=== PATIENT | female | born 1995 | race Caucasian/White ===

== ENCOUNTER → 2023-12-04 | Emergency (ER) | payer BC ==
[~2023-12-04] MED LIST: MORPHINE 2 MG/ML SYR ONE; ONDANSETRON 4 MG/2 ML VIAL ONE
[2023-12-04 18:38] LABS: Absolute Lymphocytes (CBC) 1.8 K/uL (0.7-4.9); Albumin 3.9 g/dL (3.4-5.0); Bilirubin Total 0.3 mg/dL (0.2-1.0); Hematocrit 42.5 % (36.0-45.0); Lymphocytes % 21.8 % (15.3-44.8); MCV 90.5 fL (80-100); MPV 7.8 fL (7.6-11.3); Platelets 338 thou/uL (152-406); Potassium 3.8 mEq/L (3.5-5.1); Protein, Total 7.8 g/dL (6.4-8.2); RBC Red Blood Cell Count 4.69 M/uL (3.86-4.86)
[2023-12-04 19:20] LABS: Urine Bacteria <20 /HPF (<20); Urine Bilirubin NEGATIVE (Negative); Urine Blood Negative (Negative); Urine Clarity Clear (Clear); Urine Color Yellow (Yellow); Urine Glucose NEGATIVE (Negative); Urine Mucus 1+ /HPF (None Seen); Urine Protein TRACE (Negative); Urine RBC <5 /HPF (None Seen); Urine Urobilinogen 1+ (Normal); Urine pH 5.5 (5.0-7.0)
--- NOTE | 2023-12-04 20:05 | RAD REPORT ---
EXAM DESCRIPTION: CT - Abdomen Pelvis W Contrast - 12/04/2023 7:43 pm CLINICAL HISTORY: Abdominal pain COMPARISON: None TECHNIQUE: Computed axial tomography of the abdomen and pelvis was obtained. 100 cc Isovue-300 is ad ministered intravenously. All CT scans are performed using dose optimization technique as appropriate and may include automated exposure control or mA/KV adjustment according to patient size. FINDINGS: The liver, spleen, pancreas, adrenals and kidneys appear unremarkable. There is no evidence of diverticulitis Normal appendix. 1.8 centimeter right ovarian follicle IMPRESSION: No acute abnormality is displayed
--- NOTE | 2023-12-04 20:15 | ER ---
Nurse's Notes [facility] Name: Liliya Cool Age: 28 yrs Sex: Female : 1995 Arrival Date: 12/04/2023 Time: 17:18 Bed 5 Private MD: Diagnosis: Abdominal pain, Generalized Presentation: 12/04 17:56 Chief complaint: N/D and diffuse abdominal pain x 3 days, black stool today, has been hb taking Pepto. Coronavirus screen: At this time, the client does not indicate any symptoms associated with coronavirus-19. Ebola Screen: No symptoms or risks identified at this time. Initial Sepsis Screen: Does the patient meet any 2 criteria? No. Patient's initial sepsis screen is negative. Does the patient have a suspected source of infection? No. Patient's initial sepsis screen is negative. Risk Assessment: Do you want to hurt yourself or someone else? Patient reports no desire to harm self or others. Onset of symptoms was December 02, 2023. 17:56 Method Of Arrival: Ambulatory hb 17:56 Acuity: CESAR 3 hb Historical: - Allergies: 17:59 No Known Allergies; hb - Home Meds: 17:59 None [Active]; hb - PSHx: 17:59 Knee - Left; hb - Immunization history:: Adult Immunizations up to date. - Social history:: Smoking status: Reported history of juuling and/or vaping. Screenin:[address] [facility] ED Fall Risk Assessment (Adult) History of falling in the last 3 months, mb9 including since admission No falls in past 3 months (0 pts) Confusion or Disorientation No (0 pts) Intoxicated or Sedated No (0 pts) Impaired Gait No (0 pts) Mobility Assist Device Used No (0 pt) Altered Elimination No (0 pt) Score/Fall Risk Level 0 - 2 = Low Risk Oriented to surroundings, Maintained a safe environment, Educated pt \T\ family on fall prevention, incl call for assistance when getting out of bed. Abuse screen: Denies threats or abuse. Nutritional screening: No deficits noted. Tuberculosis screening: Assessment: 18:08 General: Appears in no apparent distress. Behavior is calm, cooperative. Pain: mb9 Complains of pain in abdomen Quality of pain is described as throbbing, Pain began 2-3 days ago. Is intermittent. Neuro: Fagan Agitation-Sedation Scale (RASS): 0 - Alert and Calm Level of Consciousness is awake, alert, obeys commands, Oriented to person, place, time, situation, Appropriate for age. Cardiovascular: Patient's skin is warm and dry. Respiratory: Airway is patent Respiratory effort is even, unlabored, Respiratory pattern is regular, symmetrical. GI: Abdomen is round non-distended, Bowel sounds present X 4 quads. Abd is soft and non tender X 4 quads. Reports nausea. : No signs and/or symptoms were reported regarding the genitourinary system. EENT: No signs and/or symptoms were reported regarding the EENT system. Derm: Skin is pink, warm \T\ dry. Musculoskeletal: Range of motion: intact in all extremities. 19:53 Reassessment: Patient appears in no apparent distress at this time. No changes from tm6 previously documented assessment. Patient and/or family updated on plan of care and expected duration. Pain level reassessed. Patient is alert, oriented x 3, equal unlabored respirations, skin warm/dry/pink. Vital Signs: 17:56 BP 147 / 95; Pulse 84; Resp 16; Temp 98.9(O); Pulse Ox 98% on R/A; Weight 81.65 kg; hb Height 5 ft. 4 in. ; Pain 5/10; 19:00 BP 102 / 66; Pulse 78; Resp 16; Pulse Ox 100% on R/A; mb9 19:51 BP 123 / 71; Pulse 83; Pulse Ox 98% on R/A; Pain 3/10; tm6 17:56 Body Mass Index 30.90 (81.65 kg, 162.56 cm) hb 17:56 Pain Scale: Adult hb 19:51 Pain Scale: Adult tm6 ED Course: 17:24 Patient arrived in ED. mg5 17:24 Sofy Adan PA-C is PHCP. sb4 17:24 Tiff Koenig MD is Attending Physician. sb4 17:59 Triage completed. hb 18:00 Arm band placed on. hb 18:04 Nguyen Alvarez, MARLIN is Primary Nurse. mb9 18:09 Placed in gown. Bed in low position. Call light in reach. Side rails up X 1. Client mb9 placed on continuous cardiac and pulse oximetry monitoring. NIBP monitoring applied. 18:11 CBC with Diff Sent. bc6 18:11 CMP Sent. bc6 18:11 Lipase Sent. bc6 18:11 Inserted saline lock: 20 gauge in right antecubital area, using aseptic technique. bc6 Blood collected. 19:04 Report given to MARLIN Cortes. mb9 19:45 CT Abd/Pelvis - IV Contrast Only In Process Unspecified. EDMS 20:14 Gokul Suresh MD is Referral Physician. sb4 20:25 No provider procedures requiring assistance completed. IV discontinued, intact, jb4 bleeding controlled, No redness/swelling at site. Pressure dressing applied. Administered Medications: 19:28 Drug: morphine IVP or IV 2 mg IVP once over 4 mins Route: IVP; Infused Over: 4 mins; tm6 Site: left antecubital; 19:28 Drug: Ondansetron IVP 4 mg IVP once; over 2 minutes Route: IVP; Site: right antecubital;tm6 Medication: 18:09 VIS not applicable for this client. mb9 Outcome: 20:14 Discharge ordered by . sb4 20:25 Discharged to home ambulatory, with family, jb4 20:25 Condition: stable 20:25 Discharge instructions given to patient, Instructed on discharge instructions, follow up and referral plans. medication usage, Demonstrated understanding of instructions, follow-up care, medications, Prescriptions given X 2, 20:25 Patient left the ED. jb4 Signatures: Dispatcher [employer] EDTX Lauren Avitia, Bryan Pedro RN, RN RN jb4 Sofy Adan, PAFilibertoC PA-Asher [email or web address] Nguyen Alvarez RN RN mb9 Italia Levi 6 Trina Patel mg5 Sophia Padgett RN RN tm6
--- NOTE | 2023-12-04 20:15 | EDPHYS ---
Physician Documentation [facility] Name: Liliya Cool Age: 28 yrs Sex: Female : 1995 Arrival Date: 12/04/2023 Time: 17:18 Bed 5 Private MD: ED Physician Tiff Koenig HPI: 12/04 18:08 This 28 yrs old Female presents to ER via Ambulatory with complaints of Abdominal Pain. sb4 18:08 The patient presents with abdominal pain that is diffuse. Onset: The symptoms/episode sb4 began/occurred 2 day(s) ago. The symptoms do not radiate. Associated signs and symptoms: Pertinent positives: diarrhea, nausea, Pertinent negatives: constipation, dysuria, fever, vomiting. The symptoms are described as crampy. Modifying factors: The symptoms are alleviated by nothing, the symptoms are aggravated by nothing. Severity of pain: At its worst the pain was mild in the emergency department the pain is unchanged. The patient has not experienced similar symptoms in the past. The patient has not recently seen a physician. Historical: - Allergies: 17:59 No Known Allergies; hb - Home Meds: 17:59 None [Active]; hb - PSHx: 17:59 Knee - Left; hb - Immunization history:: Adult Immunizations up to date. - Social history:: Smoking status: Reported history of juuling and/or vaping. ROS: 18:08 Constitutional: Negative for fever, chills, and weight loss, sb4 18:08 Abdomen/GI: Positive for abdominal pain, nausea, diarrhea, 18:08 All other systems are negative, Exam: 18:08 Constitutional: This is a well developed, well nourished patient who is awake, alert, sb4 and in no acute distress. Head/Face: Normocephalic, atraumatic. Eyes: Extra-ocular motions intact. Periorbital areas with no swelling, redness, or edema. ENT: Mucous membranes moist. Cardiovascular: Regular rate and rhythm with a normal S1 and S2. Respiratory: Lungs have equal breath sounds bilaterally, clear to auscultation and percussion. No rales, rhonchi or wheezes noted. No increased work of breathing, no retractions or nasal flaring. Abdomen/GI: Soft, non-tender, no distension. Skin: Warm, dry with normal turgor. Normal color with no rashes, no lesions, and no evidence of cellulitis. MS/ Extremity: Pulses equal, no cyanosis. Neurovascular intact. Full, normal range of motion. Neuro: Awake and alert, GCS 15, oriented to person, place, time, and situation. Motor strength 5/5 in all extremities. Sensory grossly intact. Vital Signs: 17:56 BP 147 / 95; Pulse 84; Resp 16; Temp 98.9(O); Pulse Ox 98% on R/A; Weight 81.65 kg; hb Height 5 ft. 4 in. ; Pain 5/10; 19:00 BP 102 / 66; Pulse 78; Resp 16; Pulse Ox 100% on R/A; mb9 19:51 BP 123 / 71; Pulse 83; Pulse Ox 98% on R/A; Pain 3/10; tm6 17:56 Body Mass Index 30.90 (81.65 kg, 162.56 cm) hb 17:56 Pain Scale: Adult hb 19:51 Pain Scale: Adult tm6 MDM: 17:52 Patient medically screened. sb4 18:08 Differential diagnosis: non-specific abd pain, Peptic Ulcer Disease, urinary tract sb4 infection, gastroenteritis, IBS, constipation. 20:14 Data reviewed: vital signs, nurses notes, lab test result(s), radiologic studies, and sb4 as a result, I will discharge patient. Counseling: I had a detailed discussion with the patient and/or guardian regarding the historical points, exam findings, and any diagnostic results supporting the discharge/admit diagnosis, lab results, radiology results, to return to the emergency department if symptoms worsen or persist or if there are any questions or concerns that arise at home. 12/04 18:08 Order name: CBC with Diff; Complete Time: 18:43 sb4 12/04 18:08 Order name: CMP; Complete Time: 18:38 sb4 12/04 18:08 Order name: Lipase; Complete Time: 18:38 sb4 12/04 18:08 Order name: Test, Urine; Complete Time: 19:21 sb4 12/04 18:08 Order name: Urinalysis w/ reflexes; Complete Time: 19:21 sb4 12/04 18:08 Order name: CT Abd/Pelvis - IV Contrast Only; Complete Time: 20:06 sb4 12/04 18:08 Order name: IV Saline Lock; Complete Time: 18:10 sb4 12/04 18:08 Order name: Labs collected and sent; Complete Time: 18:10 sb4 Administered Medications: 19:28 Drug: morphine IVP or IV 2 mg IVP once over 4 mins Route: IVP; Infused Over: 4 mins; tm6 Site: left antecubital; 19:28 Drug: Ondansetron IVP 4 mg IVP once; over 2 minutes Route: IVP; Site: right antecubital;tm6 Disposition Summary: 12/04/23 20:14 Discharge Ordered Notes: Location: Home sb4 Problem: new sb4 Symptoms: have improved sb4 Condition: Stable sb4 Diagnosis - Abdominal pain, Generalized sb4 Followup: sb4 - With: Gokul Suresh MD - When: As needed - Reason: If symptoms return, Recheck today's complaints, Re-evaluation by your physician Discharge Instructions: - Discharge Summary Sheet sb4 - Abdominal Pain, Adult sb4 Forms: - Medication Reconciliation Form sb4 - Thank You Letter sb4 - Antibiotic Education sb4 - Prescription Opioid Use sb4 - Patient Portal Instructions sb4 - Leadership Thank You Letter sb4 Prescriptions: - Zofran 4 mg Oral Tablet - take 1 tablet ORAL route every 12 hours As needed; 20 tablet; Refills: 0, sb4 Product Selection Permitted - dicyclomine 20 mg Oral tablet - take 1 tablet ORAL route 3 times per day; 20 tablet; Refills: 0, Product sb4 Selection Permitted Signatures: Dispatcher [employer] Lauren Singh RN RN hb Brown, Sophia, PA-C PA-C sb4 Sophia Padgett RN RN tm6
[2023-12-05 00:32] VITALS: BP 123/71; TEMP 98.9; O2SAT 98
== END ==
LOC: ER 17:18
DX: R10.84 Generalized abdominal pain (principal); R19.7 Diarrhea, unspecified; R11.0 Nausea
CPT/HCPCS: 85025; 81001; 36415; 81025; 83690; 80053; 74177; Q9967; J2270; J2405